=== PATIENT | female | born 1980 | race African-American/Black ===

== ENCOUNTER 2016-10-15 04:50 | Inpatient (IN) | payer OTHER ==
[~2016-10-15] VITALS: Ht 170.2 cm; Wt 122.0 kg
[~2016-10-15 04:50] MED LIST: IBUPROFEN800 MG PO
--- NOTE | 2016-10-15 11:49 | Admission Core Measures ---
Admission Meds I reviewed the following Meds: Current Medications Sig/Danny Start time Last Medication Dose Stop Time Status Admin Cefazolin Sodium 2,000 MG ONCE 10/15 NR (Kefzol-Ancef Inj) 10/15 2358 Dexamethasone 10 MG ONCE 10/15 NR (Decadron 10MG/Ml 10/15 2358 Sdv) Dextrose/Water 50 ML (Dextrose 5%) Heparin Sodium 5,000 UNIT ONCE 10/15 NR (Porcine) 10/15 2358 Acute Coronary Syndrome Inclusion Criteria ACS Diagnosis No Inpatient Core Measures LDL Reminder: If No, please order W/I first 24hr of stay Congestive Heart Failure Inclusion Criteria CHF Diagnosis No Cerebrovascular accident Inclusion Criteria CVA/TIA Diagnosis No Inpatient Core Measures Bedside Swallow Eval Reminder: If BSE failed, place ST order Antithrombotic Reminder: Order Antithrombotic Medication by end of day 2 Antithrombotic Reminder: Document Reason Antithrombotic Not ordered by end of day 2 AFIB/Flutter Reminder: If Present, add to problem list AFIB/Flutter Reminder: Order Anticoag Medication for pts with AFIB/Flutter Atherosclerosis Reminder: If Present, add to problem list LDL Reminder: If No, please order W/I first 24hr of stay PT Order Reminder: If No, please order Venous thromboembolism Inpatient Core Measures VTE Risk Factors: Obesity, Surgery VTE Prophylaxis Ordered Inpt Mech & Pharm No Mech VTE prophylaxis d/t No contraindications No VTE Pharm Prophylaxis d/t No contraindications Inclusion Criteria - Per Current guidelines, there needs to be overlap - treatment for the first 5 days of Warfarin therapy. - Parenteral Anticoagulation (IV or SC) needs to be - given along with Warfarin therapy. VTE Diagnosis No VTE Type NONE VTE Confirmed by (Test) NONE Problem List As ranked by this Provider includes Assessment & Plan 1. S/P laparoscopic sleeve gastrectomy HOME MEDS Home Med List Ibuprofen 800 MG TABLET 800 MG PO Q6P PRN PAIN SCALE 4-6
--- NOTE | 2016-10-15 11:58 | Operative Report ---
Operative/Inv Procedure Report Surgery Date: 10/15/16 Name of Procedure: Laparoscopic vertical sleeve gastrectomy Pre-Operative Diagnosis: Morbid obesity BMI of 43 Post-Operative Diagnosis: Same Estimated Blood Loss: less than 50ml Surgeon/Graphic Design Assistant: NERY KATZ,DEANA Bustillos PA-C Anesthesia: general endotracheal tube, block IV Fluids: LR Urine Output: n/a Drains: none Specimens: portion of stomach Complications: none Condition: stable Operative/Procedure Note Note: After informed consent and proper identification the patient was taken to the operating room and placed on the operating room table in the supine position a timeout was performed. Venodyne stockings were applied she underwent a general endotracheal anesthetic. Anesthesia then performed a Lewis block. The abdomen was prepped and draped in normal sterile fashion. Using a Covidian 12 mm visiport and a 0 Stortz laparoscope we entered the abdominal cavity without difficulty through 1 cm incision the left upper quadrant. We had excellent visualization after insufflating with 14 mm of CO2 pressure. We placed additional trochars under direct visualization 2 5 mm trochars in each of the subcostal margins, a 15 mm Covidian trocar in the right midabdomen and a Artemio liver retractor in the upper midline to retract the left lobe of the liver. The liver was smooth and glistening there was no evidence of a hiatal hernia. We had anesthesia place an orogastric tube and decompress the stomach and then remove it. We began dividing the vascular attachments opposite the angularis 6 cm from the pylorus using a sonicision scalpel. We divided the short gastric vessels all the way up to the angle his taking the fundus of the stomach off of the left carl. We were careful not to injure the pancreas spleen or splenic vessels. We now had anesthesia place a 38 Kazakh bougie within the stomach along the lesser curvature and using it as a guide we stapled using an Endo KEYANNA stapler firing 2 black 60 cm cartridges with seam guard followed by 2 purple cartridges with seam guard as well as a single 45 cm purple cartridge with seam guard to completely detach the remnant stomach from the newly created sleeve we then had anesthesia remove the bougie removed a Artemio liver retractor we placed the remnant stomach in a 15 Endo Catch bag and pulled it out through the 15 mm trocar site remove the rest of the trochars under direct visualization sponge and instrument counts were correct we did not place any sponges in the abdominal cavity. We closed all skin incisions with 4-0 Monocryl subcuticular stitches Steri-Strips and dry sterile dressings were placed patient tolerated the procedure without complications and was transferred to the PACU in stable condition Findings: normal appearing liver, no hiatal hernia Discharge Disposition: PACU
[2016-10-15] MEDS ORDERED: HYCET 7.5 MG-3473 ML PO (13:24)
[2016-10-15] MEDS ORDERED: PROTONIX40 M3 PO (13:24)
--- NOTE | 2016-10-15 13:30 | Patient Discharge Instructions ---
Discharge Instructions General Discharge Information You were seen/treated for: MORBID OBESITY You had these procedures: LAPRASCOPIC SLEEVE GASTRECTOMY Watch for these problems: INCREACED PAIN, VOMITING, FEVERS REDNESS OR DRAINAGE FROM INCISIONS DIFFICULTY BREATHING OR CHEST PAIN No bath, but you may shower: Yes Special Instructions: SEE PRINTED INFO PACKET AMBULATE FREQUENTLY MAY USE GAS-X FOR GAS PAIN Diet Continue normal diet: No Recommended Diet: Bariatric Activity Activity Self Limited: Yes Pounds, do NOT lift more than: 10 Acute Coronary Syndrome Inclusion Criteria At DC or during hospital stay patient has or had the following: ACS DIAGNOSIS No Discharge Core Measures Meds if any: Prescribed or Continued at Discharge Meds if any: NOT Prescribed or Continued at Discharge Congestive Heart Failure Inclusion Criteria At DC or during hospital stay patient has or had the following: CHF DIAGNOSIS No Discharge Core Measures Meds if any: Prescribed or Continued at Discharge Meds if any: NOT Prescribed or Continued at Discharge Cerebrovascular accident Inclusion Criteria At DC or during hospital stay patient has or had the following: CVA/TIA Diagnosis No Discharge Core Measures Meds if any: Prescribed or Continued at Discharge Meds if any: NOT Prescribed or Continued at Discharge Venous thromboembolism Inclusion Criteria VTE Diagnosis No VTE Type NONE VTE Confirmed by (Test) NONE Discharge Core Measures - Per Current guidelines, there needs to be overlap - treatment for the first 5 days of Warfarin therapy. - If discharged on Warfarin prior to 5 days of - overlap therapy, the patient will need to be - assessed for post discharge needs including - *Post discharge parental anticoagulation - *Warfarin and/or parental anticoagulation education - *Follow up date to check INR post discharge At least 5 days overlap therapy as Inpatient No Meds if any: Prescribed or Continued at Discharge Note: Overlap Therapy is Warfarin and Anticoagulant Meds if any: NOT Prescribed or Continued at Discharge
--- NOTE | 2016-10-15 13:39 | PN- Bariatrics ---
Subjective Subjective: The patient seen this afternoon postoperatively. She reports her pain is adequately controlled current time and she is without nausea. She has no complaints the current time and denies any chest pain or difficulty breathing. Objective Vital Signs and I&Os Vital signs: Blood pressure 143/72, pulse 78, temperature 98.1, O2 saturation 97 % on room air I's and O's: 1200 ML's in of lactated Ringer's/patient is due to void/EBL scant Physical Exam: Gen.: Alert and obvious distress Skin: Warm and dry Cardiac: S1-S2 regular Pulmonary: Bilateral breath sounds were equal and decreased at bases Abdomen: Soft, obese, appropriate incisional tenderness, bowel sounds positive. Port sites are clean, dry, and intact aside from the left upper sites which was bloody. Extremities: Bilateral lower extremities are warm without calf tenderness or significant edema. Assessment/Plan Assessment/Plan Assessment: 36-year-old female status post laparoscopic sleeve gastrectomy. Postoperatively the patient is progressing as expected and her pain is under adequate control. Plan: Stage I diet but nothing by mouth after midnight for upper GI in the morning IV hydration Continue current pain regiment 2 doses of postoperative prophylactic antibiotics Follow-up morning labs GI and DVT prophylaxis Out of bed and ambulate Strict I's and O's and monitor for postoperative void Core Measures/Miscellaneous Venous Thromboembolism VTE Risk Factors: Obesity, Surgery VTE Contraindications: No Contraindications VTE Prophylaxis Ordered Inpt: Mech & Pharm VTE Diagnosis: No VTE Type: NONE VTE Confirmed by (Test): NONE Beta Theresa Is Beta Theresa a Home Med? No Antibiotics Is Patient on Antibiotics? Yes If Yes: prophylaxis
--- NOTE | 2016-10-15 13:40 | Surg Short-stay <48hrs Dis Sum ---
Visit Information Visit Dates Admission Date: 10/15/16 Discharge Date: 10/17/16 Surgical Short Stay DC Summary Admission Diagnosis: Morbid obesity Final Diagnosis: Same Procedure(s): Laparoscopic sleeve gastrectomy Summary/Significant Findings: The patient was admitted on 10/15/2016. Later that day she was brought to the operating theater where she underwent a laparoscopic sleeve gastrectomy. Postoperatively the patient progressed as expected, her pain is under adequate control, and she tolerated a stage I diet without nausea. The patient is discharged with an uneventful hospital course. Condition at Discharge: Stable Discharge Disposition: home or self care Discharge instructions provided to patient/family: Yes Post discharge follow-up plan: Call the office to be seen in one week
[2016-10-15 16:00] VITALS: BP 115/63
[2016-10-15 18:10] VITALS: BP 120/55
[2016-10-15 20:06] VITALS: BP 120/72
--- NOTE | 2016-10-15 20:44 | NUR ---
ADMISSION NOTE: PT ARRIVED TO FLOOR VIA STRETCHER WITH DISTRIBUTION SLEEPY/ALERT, ORIENTED, ROOM AIR, IV SITE INTACT, FLUIDS RUNNING PER MD ORDER, 5 LAPROSCOPIC INCISIONS TO ABDOMEN, ONE WITH COPIOUS AMT OF BLOODY DRAINAGE, (SURG PA TONI AWARE-REINFORCED BY THIS RN), PAIN 5/10 TO ABDOMEN, DENIES NAUSEAEDUCATED ON BARIATRIC ST 1 DIET, FREQUENT AMBULATION AND IST. ORIENTED TO ROOM, WELCOME FOLDER GIVEN, VSS. WILL CONTINUE TO MONITOR.
--- NOTE | 2016-10-15 23:43 | NUR ---
10/15/12 1226 REPORTED TO SURGICAL PA Tutu PT WITH SMALL AMOUNT OF CLEAR VOMITUS X1. PT WITH TWO BLOODY DSG TO ABDOMEN. WILL CONTINUE TO MONITOR. NO ORDERS AT THIS TIME.
[2016-10-16 00:02] VITALS: BP 130/86
--- NOTE | 2016-10-16 03:31 | NUR ---
LATE ENTRY TIMBO 10/15/16 8700 SURGICAL PA Tutu NOTIFIED OF PT WITH SOME CLEAR VOMITING. PT DOES NOT WANT NAUSEA MED AT THIS TIME...WILL CONTINUE TO MONITOR.
[2016-10-16 03:50] VITALS: BP 138/64
[2016-10-16 07:59] LABS: ABSOLUTE BASOPHIL COUNT 0 /CUMM (0.0-0.2); ABSOLUTE EOSINOPHIL COUNT 0 /CUMM (0.0-0.7); ABSOLUTE GRANULOCYTE CT 13.9 /CUMM (1.4-6.5); ABSOLUTE MONOCYTE COUNT 0.8 /CUMM (0.10-0.60); BASOPHIL % 0 % (0.0-2.0); EOSINOPHIL % 0 % (0-5); HEMATOCRIT 36.6 % (37-47); MEAN CORPUSCULAR HGB 26.5 PG (27.0-31.0); MEAN CORPUSCULAR HGB CONC 32.9 G/DL (33.0-37.0); MEAN CORPUSCULAR VOLUME 80.6 FL (81.0-99.0); MEAN PLATELET VOLUME 8.6 FL (7.4-10.4); RBC DISTRIBUTION WIDTH 15.1 % (11.5-14.5); RED BLOOD CELL CT 4.54 /CUMM (4.20-5.40)
[2016-10-16 08:09] VITALS: BP 122/64
--- NOTE | 2016-10-16 08:17 | PN- Bariatrics ---
Subjective Subjective: complains of nausea and had couple episode of vomiting OVERNIGHT.This morning nausea and vomiting subsided with antienics.Pain is adeqately controlled with meds. NO flatus /sob/chestpain.Ambulating and voiding spontaneously. Objective Vital Signs and I&Os Vital Signs Date Time Temp Pulse Resp B/P Pulse O2 O2 Flow FiO2 Ox Delivery Rate 10/16 0350 98.9 61 20 138/64 96 Room Air 10/16 0002 99.0 56 20 130/86 98 Room Air 10/15 2005 98.2 56 20 120/72 94 Room Air 10/15 2000 94 Room Air Room Air 10/15 1810 99.0 55 18 120/55 98 Room Air 10/15 1800 98 Room Air 10/15 1705 Room Air 10/15 1600 98.7 60 16 115/63 Intake & Output 10/16 1600 10/16 0800 10/16 0000 10/15 1600 10/15 0800 10/15 0000 Intake Total 1000 560 745 Output Total 550 350 450 Balance 450 210 295 Intake, IV 1000 500 625 Intake, Oral 0 60 120 Number 0 Bowel Movements Output, 150 50 50 Emesis Output, Urine 400 300 400 Patient 269 lb Weight Physical Exam: physical : Not in any distress .Alert oriented x3. lungs : clear to ascultate bialterally. Heart : regular ,s1 and s2 appreciated.No additional sounds. abdomen : obese,soft appropriate tenderness to palpate in the mid abdomen. Incision c/d/intact with dressing. There was staining in the dressing the 2 mid abdominal port site. Assessment/Plan Assessment/Plan 36 y/o morbid obese female (bmi :42)pod #1 s/p lap sleeve gastrectomy , post op nausea ,other no donig well. Therfore paln is to f/u on the ugi today. Will premedicate prior to the procedure if contniues to be nauseated.Encourage oob to ambulate.continue npo until the study.f/U LABS. On dvt prophylaxsis (heprin)and ppi. Core Measures/Miscellaneous Venous Thromboembolism VTE Risk Factors: Obesity, Surgery VTE Contraindications: No Contraindications VTE Prophylaxis Ordered Inpt: Mech & Pharm VTE Diagnosis: No VTE Type: NONE VTE Confirmed by (Test): NONE Beta Theresa Is Beta Theresa a Home Med? No Antibiotics Is Patient on Antibiotics? Yes If Yes: prophylaxis
[2016-10-16 08:34] LABS: GRANULOCYTE % 88.4 % (42.2-75.2); PLATELET COUNT 246 /CUMM (130-400); WHITE BLOOD CELL COUNT 15.7 /CUMM (4.8-10.8)
--- NOTE | 2016-10-16 08:41 | NUR ---
0700 SURGICAL NOTIFIED OF PT WITH N/V THIS AM.
--- NOTE | 2016-10-16 12:46 | RADIOLOGY REPORT ---
EXAMINATION: FL UPPER GI SERIES CLINICAL INFORMATION: Status post laparoscopic sleeve gastrectomy. Follow-up study. COMPARISON: None TECHNIQUE: A preliminary film of the abdomen is obtained. A water-soluble contrast upper GI series with fluoroscopy and spot imaging was performed. The patient ingested water-soluble contrast without difficulty and was evaluated in the upright position. FINDINGS: The preliminary film is unremarkable. Incidental note is made of free air under the right hemidiaphragm fluoroscopically. The patient swallowed without difficulty. There is normal transit through the esophagus and through the postoperative stomach (sleeve gastrectomy). There is ready emptying into the duodenum. There is no evidence of extravasation or obstruction. FLUOROSCOPY TIME: 40 seconds. IMPRESSION: No evidence of extravasation or obstruction.
[2016-10-16 14:00] VITALS: BP 120/66
[2016-10-16 16:14] VITALS: BP 122/72
[2016-10-17 00:44] VITALS: BP 144/90
[2016-10-17 01:30] VITALS: BP 122/80
--- NOTE | 2016-10-17 06:46 | PN- Bariatrics ---
Subjective Subjective: The patient was seen this morning postoperatively day #2. She reports her pain is under adequate control and she is tolerating a stage I diet without nausea. She did have nausea yesterday morning but has completely resolved. She still has yet passed flatus postoperatively but is otherwise comfortable. Objective Vital Signs and I&Os Vital Signs Date Time Temp Pulse Resp B/P Pulse O2 O2 Flow FiO2 Ox Delivery Rate 10/17 0130 60 122/80 / 0044 98.5 57 20 144/90 98 Room Air / 1614 98.1 66 20 122/72 96 / 1400 98.0 68 20 120/66 97 Room Air / 1400 97 Room Air / 0809 98.6 64 20 122/64 96 Room Air 10/16 0800 96 Room Air Intake & Output 10/17 0800 10/17 0000 10/16 1600 10/16 0800 / 0000 / 1600 Intake Total 1300 1000 560 745 Output Total 200 550 350 450 Balance -200 1300 450 210 295 Intake, IV 1060 1000 500 625 Intake, Oral 240 0 60 120 Number 0 Bowel Movements Output, 150 50 50 Emesis Output, Urine 200 400 300 400 Patient 269 lb Weight Physical Exam: Gen.: Alert and obvious distress Skin: Warm and dry Abdomen: Soft, obese, appropriate incisional tenderness, bowel sounds positive. Port sites are clean, dry, and intact without signs of infection. Extremities: Bilateral lower extremities are warm without calf tenderness or significant edema. Assessment/Plan Assessment/Plan Assessment: 36-year-old female status post lap scopic sleeve gastrectomy postoperative day #2. The patient is progressing as expected and pains in adequate control. She is tolerating a stage I diet without nausea however she has yet to pass flatus. Plan: Dulcolax suppository 1 this morning Out of bed and ambulate GI and DVT prophylaxis Continue stage I diet Discharge home later today if patient passes flatus Core Measures/Miscellaneous Venous Thromboembolism VTE Risk Factors: Obesity, Surgery VTE Contraindications: No Contraindications VTE Prophylaxis Ordered Inpt: Mech & Pharm VTE Diagnosis: No VTE Type: NONE VTE Confirmed by (Test): NONE Beta Theresa Is Beta Theresa a Home Med? No Antibiotics Is Patient on Antibiotics? No
[2016-10-17 08:06] VITALS: BP 120/60
--- NOTE | 2016-10-17 09:00 | NUR ---
NOTIFIED SURGICAL PA MAYO Sanford OF PATIENT REPORTING NAUSEA, GIVEN IV ZOFRAN PRN. RELETEX BRACELET PLACE ON LEFT WRIST. ENCOURAGED AMBULATION. WILL CONTINUE TO MONITOR. CALL CHUNG IN REACH.
[2016-10-17 16:30] VITALS: BP 122/74
== END 2016-10-17 17:05 | DRG 621 ==
LOC: ENRESERVDT → ENRESERVTM → ENPENDDIS 04:50 → SDA 04:50 → 2NB 15:10
PROVIDERS: Physician Assistant Surgical; ADMIT Surgery
PROC: 0DB64Z3 Excision of Stomach, Percutaneous Endoscopic Approach, Vertical (ICD-10-PCS; principal; 2016-10-15)
DX: E66.01 Morbid (severe) obesity due to excess calories (principal); Z68.41 Body mass index [BMI] 40.0-44.9, adult
CPT/HCPCS: 74240; 82436; 88307; 88312; J0131; J0690; J1100; J1170; J1644; J1885; J2405; J7042; S5012